=== PATIENT | female | born 1970 | race Caucasian/White ===

== ENCOUNTER 2022-04-11 15:52 | Emergency (ER) | payer BC, SELFPAY ==
--- NOTE | ~2022-04-11 | XR_ITS ---
EXAMINATION: XR ankle LT min 3V DATE: 04/11/2022 16:27 INDICATION: Left foot and ankle pain TECHNIQUE: Anteroposterior, lateral, mortise, and additional oblique view of the ankle were obtained. COMPARISON: None. FINDINGS: There is mild cortical irregularity at the lateral aspect of the calcaneus. Bone alignment is normal. There is soft tissue swelling of the medial foot. IMPRESSION: 1. Possible nondisplaced fracture of the lateral calcaneus. Reviewed, dictated and finalized at location L. ING MACHINE SETTER
--- NOTE | ~2022-04-11 | XR_ITS ---
EXAMINATION: XR foot LT min 3V DATE: 04/11/2022 16:27 INDICATION: Left foot pain, initial encounter TECHNIQUE: Dorsoplantar, lateral, and 2 oblique views of the left foot were obtained. COMPARISON: None. FINDINGS: There is subtle cortical irregularity at the distal/lateral calcaneus. There is lateral sof t tissue swelling of the foot. Bone alignment is normal. No additional suspected fracture is identifi ed. IMPRESSION: 1. Possible fracture of the distal/lateral calcaneus. Reviewed, dictated and finalized at location L. INUM CAN COLLECTOR
[2022-04-11 16:05] VITALS: BP 133/88; PULSE 80; RESP 16; TEMP 36.4; O2SAT 100
--- NOTE | 2022-04-11 16:33 | ED.LOWEXIN ---
HPI - Extremity Injury (Lower) General Chief Complaint: Extremity Injury, Lower Stated Complaint: Lt Ankle Pain Due to Fall Time Seen by Provider: 04/11/22 16:33 Source: patient, RN notes reviewed and old records reviewed Mode of arrival: ambulatory Limitations: no limitations History of Present Illness HPI Narrative: 52-year-old female presents to the [facility] with complaints of left ankle pain, swelling, bruising since yesterday. States she was walking down stairs and not sure the mechanism of injury but by the time she got down to the bottom of the stairs ankle head pain. Denies hitting head. No loss of consciousness. No back pain, no pain in the hips, knee. has her own crutches Related Data Home Medications Medication Instructions Recorded Confirmed anastrozole 1 mg tablet 1 mg PO DAILY 04/11/22 04/11/22 atorvastatin 20 mg tablet 20 mg PO DAILY 04/11/22 04/11/22 sertraline 25 mg tablet 25 mg PO DAILY 04/11/22 04/11/22 Allergies Allergy/AdvReac Type Severity Reaction Status Date / Time citalopram Allergy Mild rash Unverified 04/11/22 17:06 Review of Systems Review of Systems: All systems reviewed & are unremarkable except as noted in HPI and below Constitutional: Constitutional: Reports no additional constitutional complaints Eyes: Eyes: Reports no additional eye complaints ENT: Reports system reviewed and no additional complaints, except as documented Cardiovascular: Cardiovascular: Reports no additional cardiovascular complaints, Denies chest pain and Denies dyspnea Respiratory: Respiratory: Reports no additional respiratory complaints, Denies chest congestion, Denies cough and Denies dyspnea Gastrointestinal: Gastrointestinal: Reports no additional gastrointestinal complaints, Denies abdominal pain, Denies nausea and Denies vomiting Musculoskeletal: Musculoskeletal: Reports as per HPI, Reports arthralgias and Reports joint swelling Integumentary/Breasts: Skin/Breast: Reports system reviewed and no additional complaints, except as docu Neurologic: Reports system reviewed and no additional complaints, except as documented Psychiatric: Psychiatric: Reports no additional psychiatric complaints Allergic/Immunologic: Allergic/Immunologic: Reports no additional allergic/immunologic complaints PMFSH Comments At the time of my signature, I reviewed and agree with the nursing past medical, surgical, social, and family history. There is no relevant family history pertinent to the patient complaint. Exam Const: General: cooperative, healthy appearing, comfortable, no acute distress, well developed, alert and well nourished Nutritional Appearance: well nourished Orientation/consciousness: patient oriented x3 Limitations: no limitations HENMT: Head: normal to inspection Ears: hearing grossly normal bilaterally and external ears normal Face/Nose/Sinus: Normal external nose present, Normal nares present, Normal nasal mucous membranes and turbinates present and normal facial exam Face and sinus: normal facial exam Mouth: Yes Normal oral and palatal mucosa present, Yes lip normal and Yes moist mucous membranes Eyes: General: appearance normal, both eyes and all related structures Alignment and Position: alignment normal Periorbital: periorbital findings normal Conjunctivae: conjunctivae normal Pupils: Equal, round and reactive pupils present EOM: EOMs intact bilaterally Neck: Neck: normal visual inspection, full ROM, no lymphadenopathy and no meningeal signs Chest: Chest palpation & inspection: normal inspection of the chest Resp: Effort & Inspection: normal respiratory effort and able to speak in complete sentences Auscultation: clear to auscultation bilaterally, no crackles, no rales, no rhonchi and no wheezes Cardio: Rate: regular rate Rhythm: regular rhythm Back/Spine/Pelvis: Cervical Spine: cervical ROM normal Thoracic/Lumbar Spine: No thoracic spinal tenderness Skin: General skin exam: norm
== END 2022-04-11 17:33 | disposition home or self-care (01) ==
PROVIDERS: Emergency Provider Nurse Practitioner; PCP Internal Medicine
DX: S92.002A Unspecified fracture of left calcaneus, initial encounter for closed fracture (principal); W10.9XXA Fall (on) (from) unspecified stairs and steps, initial encounter; Z85.3 Personal history of malignant neoplasm of breast
CPT/HCPCS: 29515; 73610; 73630; 99214; G0463

== ENCOUNTER 2022-05-12 00:15 | Day surgery (SDC) | payer BC, SELFPAY ==
[2022-04-20 14:40] VITALS: BMI 23.4
--- NOTE | 2022-05-12 10:06 | P.PNAN_ITS ---
Anes - Initial Pre Proc Eval Procedure: Operation Date: 05/12/22 12:30 Proposed Procedures p Screening Colonoscopy - Dante Herndon MD Date/Time: 05/12/22 10:06 Surgeon: Dante Herndon MD Pre Op Diagnosis: neoplasm screening Patient Data Age: 52 Gender: F Height: 1.73 m Weight: 70 kg Allergies Allergy/AdvReac Type Severity Reaction Status Date / Time citalopram Allergy Mild rash Verified 05/01/22 08:24 Home Medications Medication Instructions Recorded Confirmed Type anastrozole 1 mg tablet 1 mg PO DAILY 04/11/22 05/01/22 History atorvastatin 20 mg tablet 20 mg PO DAILY 04/11/22 05/01/22 History sertraline 25 mg tablet 25 mg PO DAILY 04/11/22 05/01/22 History Patient hx anesthesia problems: none Family hx anesthesia problems: none Results Review: All pre-operative results and documents have been reviewed as part of the pre- operative evaluation. [facility] Past Medical History Medical History (Updated 05/12/22 @ 10:54 by Dante Herndon MD) Anxiety Avulsion fracture of left calcaneus Breast cancer Depression Hypercholesterolemia Left ankle pain Social History Social History Smoking status: Never smoker Alcohol intake: current Drinks per week: 1 Substance use: never Substance use type: does not use Living arrangements: with family Spiritual care concerns: No Anes - Eval Final PreProcedure Day of Procedure 05/12/22 10:06 Patient weight: normal Heart: regular rate and rhythm Lungs: clear to auscultation and normal air movement Airway: Mallampati scale class II Neurological: alert and oriented Last oral intake: >/= 8 hours ASA classification: III Emergent: no Anesthetic plan: proceed Anesthesia type and monitoring: general GIVS Results Review: All pre-operative results and documents have been reviewed as part of the pre-op erative evaluation. Informed Consent: The patient's anesthetic plan and its attendant risks and benefits were discussed with the patient/family/POA. Questions were solicited and answers provided to the satisfaction of the patient/family/POA.
--- NOTE | 2022-05-12 10:53 | PM.HPGS ---
History of Present Illness History of Present Illness Consent: Risks, benefits, and alternatives have been discussed and questions answered. Patient agrees to proceed with procedure. Chief complaint: neoplasm screening Narrative: Sirena Jewell is a 52 year old female referred for colon cancer screening Review of Systems Review of Systems: All systems reviewed & are unremarkable except as noted in HPI and below PMFSH Past Medical History Medical History Anxiety Avulsion fracture of left calcaneus Breast cancer Depression Hypercholesterolemia Left ankle pain Social History Social History Smoking status: Never smoker Alcohol intake: current Drinks per week: 1 Substance use: never Substance use type: does not use Living arrangements: with family Spiritual care concerns: No Meds Home Medications and Allergies Home Medications Medication Instructions Recorded Confirmed Type anastrozole 1 mg tablet 1 mg PO DAILY 04/11/22 05/01/22 History atorvastatin 20 mg tablet 20 mg PO DAILY 04/11/22 05/01/22 History sertraline 25 mg tablet 25 mg PO DAILY 04/11/22 05/01/22 History Allergies Allergy/AdvReac Type Severity Reaction Status Date / Time citalopram Allergy Mild rash Verified 05/01/22 08:24 Exam Resp: Auscultation: clear to auscultation bilaterally Cardio: Rate: regular rate Rhythm: regular rhythm GI: GI Palp: Yes Soft to palpation and No Tenderness to palpation present (GI) Assessment and Plan Assessment and plan (1) Colon cancer screening: Code(s): Z12.11 - Encounter for screening for malignant neoplasm of colon Status: Acute Assessment and Plan: Colonoscopy with possible biopsy or polypectomy or cautery or injection of substances.
[2022-05-12 11:13] VITALS: BP 129/67; PULSE 89; RESP 20; TEMP 36.8; O2SAT 98
[2022-05-12] MEDS: LACTATED RINGERS 1,000 ML 150 ML IV CONT (11:35)
[2022-05-12 12:35] VITALS: BP 93/60; PULSE 88; RESP 19; O2SAT 98
[2022-05-12 12:45] VITALS: BP 119/74; PULSE 87; RESP 16; O2SAT 100
[2022-05-12 12:55] VITALS: BP 132/86; PULSE 76; RESP 15; O2SAT 100
== END 2022-05-12 13:13 | disposition home or self-care (01) ==
PROVIDERS: PCP Internal Medicine; Visit Provider Internal Medicine Gastroenterology
PROC: 0DJD8ZZ Inspection of Lower Intestinal Tract, Via Natural or Artificial Opening Endoscopic (ICD-10-PCS; CPT 45378; principal; 2022-05-12 12:30)
DX: Z12.11 Encounter for screening for malignant neoplasm of colon (principal); K57.30 Diverticulosis of large intestine without perforation or abscess without bleeding; Z80.0 Family history of malignant neoplasm of digestive organs; E78.00 Pure hypercholesterolemia, unspecified; F41.9 Anxiety disorder, unspecified; F32.A Depression, unspecified; Z79.811 Long term (current) use of aromatase inhibitors; Z85.3 Personal history of malignant neoplasm of breast
CPT/HCPCS: 45378; J2704; J7120

== ENCOUNTER 2022-11-04 08:02 | Emergency (ER) | payer BC, SELFPAY ==
--- NOTE | 2022-11-04 08:17 | ED.GENADULT ---
HPI - General Adult General Chief complaint: Skin/Abscess/Foreign Body Stated complaint: sore on lower lip Time Seen by Provider: 11/04/22 08:23 Source: patient, RN notes reviewed and old records reviewed Mode of arrival: ambulatory Limitations: no limitations History of Present Illness HPI narrative: 52-year-old female presents to the [facility] with complaints of a sore to the lower lip that started Sunday. Has a history of cold sores. Was unable to find her normal treatment and has tried [id number], a regular no oil and other treatments she found online. Now area is dried. Not swollen. No increased warmth. Not abscessed. No fluctuant area Onset (ago): day(s) (5) Location: mouth (Center lower lip) Related Data Home Medications Medication Instructions Recorded Confirmed anastrozole 1 mg tablet 1 mg PO DAILY 04/11/22 11/04/22 atorvastatin 20 mg tablet 20 mg PO DAILY 04/11/22 11/04/22 sertraline 25 mg tablet 25 mg PO DAILY 04/11/22 11/04/22 Allergies Allergy/AdvReac Type Severity Reaction Status Date / Time citalopram Allergy Mild rash Verified 11/04/22 08:29 Review of Systems Review of Systems: All systems reviewed & are unremarkable except as noted in HPI and below Constitutional: Constitutional: Reports no additional constitutional complaints Eyes: Eyes: Reports no additional eye complaints ENT: Reports as per HPI and Reports other (Sore lip) Cardiovascular: Cardiovascular: Reports no additional cardiovascular complaints, Denies chest pain and Denies dyspnea Respiratory: Respiratory: Reports no additional respiratory complaints, Denies chest congestion, Denies cough and Denies dyspnea Gastrointestinal: Gastrointestinal: Reports no additional gastrointestinal complaints, Denies abdominal pain, Denies nausea and Denies vomiting Musculoskeletal: Musculoskeletal: Reports no additional musculoskeletal complaints Integumentary/Breasts: Skin/Breast: Reports system reviewed and no additional complaints, except as docu Neurologic: Reports system reviewed and no additional complaints, except as documented Psychiatric: Psychiatric: Reports no additional psychiatric complaints Allergic/Immunologic: Allergic/Immunologic: Reports no additional allergic/immunologic complaints PMFSH Past Medical History Medical History Anxiety Avulsion fracture of left calcaneus Breast cancer Depression Hypercholesterolemia Left ankle pain Social History Social History (Reviewed 07/22/23 @ 08:19 by LOPEZ Mccartney Smoking status: Never smoker Alcohol intake: current Drinks per week: 1 Substance use: never Substance use type: does not use Living arrangements: with family Spiritual care concerns: No Comments At the time of my signature, I reviewed and agree with the nursing past medical, surgical, social, and family history. There is no relevant family history pertinent to the patient complaint. Exam Const: General: cooperative, healthy appearing, comfortable, no acute distress, well developed, alert and well nourished Nutritional Appearance: well nourished Orientation/consciousness: patient oriented x3 Limitations: no limitations HENMT: Head: normal to inspection Head images: 1. 1 x 1 cm dry area. No redness, NO swelling, no fluctuance, no increased warmth. Minor discoloration, brown in color Ears: hearing grossly normal bilaterally and external ears normal Face/Nose/Sinus: Normal external nose present, Normal nares present, Normal nasal mucous membranes and turbinates present and normal facial exam Face and sinus: normal facial exam Mouth: Yes Normal oral and palatal mucosa present, Yes lip normal and Yes moist mucous membranes Throat: posterior oropharynx normal and uvula midline Eyes: General: appearance normal, both eyes and all related structures Alignment and Position: alignment normal Periorbital: periorbital findings n
[2022-11-04 08:20] VITALS: BP 151/88; PULSE 78; RESP 18; TEMP 37.3; O2SAT 99
== END 2022-11-04 08:39 | disposition home or self-care (01) ==
PROVIDERS: Emergency Provider Nurse Practitioner; PCP Internal Medicine
DX: B00.1 Herpesviral vesicular dermatitis (principal); E78.00 Pure hypercholesterolemia, unspecified; F41.9 Anxiety disorder, unspecified; F32.A Depression, unspecified; Z85.3 Personal history of malignant neoplasm of breast
CPT/HCPCS: 99213; G0463

== ENCOUNTER 2023-02-10 11:51 | Emergency (ER) | payer BC, SELFPAY ==
--- NOTE | 2023-02-10 11:55 | ED.EYEPROB ---
HPI - Eye Problem General Chief complaint: Eye Problems Stated complaint: bilateral eye irritation Time Seen by Provider: 02/10/23 11:56 Source: patient Mode of arrival: ambulatory Limitations: no limitations History of Present Illness HPI Narrative: Sirena is a 53-year-old female patient presenting to the clinic today with complaints of bilateral eye irritation x2 days. She reports that she has had some yellow drainage coming from the eyes with a little bit of irritation. Denies any visual changes or photosensitivity. No fever or chills. Has had runny nose since November. Related Data Home Medications Medication Instructions Recorded Confirmed anastrozole 1 mg tablet 1 mg PO DAILY 04/11/22 02/10/23 atorvastatin 20 mg tablet 20 mg PO DAILY 04/11/22 02/10/23 sertraline 25 mg tablet 25 mg PO DAILY 04/11/22 02/10/23 Allergies Allergy/AdvReac Type Severity Reaction Status Date / Time citalopram Allergy Mild rash Verified 02/10/23 11:57 Review of Systems Review of Systems: Pertinent positives per HPI. Patient denies any fever, chills, rash, headache, visual changes, dizziness, cough, sore throat, shortness of breath, chest pain, palpitations, nausea, vomiting, diarrhea, constipation, abdominal pain, or any urinary issues. [facility] Past Medical History Medical History Anxiety Avulsion fracture of left calcaneus Breast cancer Depression Hypercholesterolemia Left ankle pain Social History Social History Smoking status: Never smoker Alcohol intake: current Drinks per week: 1 Substance use: never Substance use type: does not use Living arrangements: with family Spiritual care concerns: No Comments At the time of my signature, I reviewed and agree with the nursing past medical, surgical, social, and family history. There is no relevant family history pertinent to the patient complaint. Exam Narrative: General: Well-developed, well nourished, in no apparent distress Head: Normocephalic, atraumatic Eyes: Pupils equally round and reactive to light bilaterally, EOM intact, sclera and conjunctive injected with yellow mucopurulent discharge coming from bilateral eyes, lower eyelid swelling noted bilaterally.l Ears: TMs intact and clear, ear canals clear, no drainage, grossly hearing normal. Nose: Nares patent, clear discharge, no inflammation, no sinus tenderness. Mouth: Oropharynx without lesions or masses, good dentition, MMM. Neck: Supple, trachea midline, no enlargement of anterior or posterior cervical nodes, no thyroid masses or goiter palpable. Cardio: Regular rate and rhythm, s1 and s2 normal, no murmur appreciated. Resp: Clear to auscultation bilaterally anteriorly and posteriorly, no rhonchi, rales, wheezing or rubs Course Course Emergency Course: Portions of this record may have been created with voice recognition software. Level of Care: Express Care Visit Vital Signs Vital signs: Vital signs reviewed MDM - Eye Problem MDM Narrative Medical decision making narrative: At the time of visit patient is resting comfortably on the exam table. I suspect patient has bilateral conjunctivitis. Prescription for tobramycin was sent to the pharmacy and supportive measures were discussed with the patient she voiced understanding discharge instructions agrees to treatment plan. Differential Diagnosis Differential diagnosis: Likely corneal abrasion, conjunctivitis, acute iritis, periorbital cellulitis and other (Keratitis) Discharge Plan Discharge Clinical Impression: Conjunctivitis Qualifiers: Conjunctivitis type: acute Acute conjunctivitis type: bacterial Laterality: bilateral Qualified Code(s): H10.33 - Unspecified acute conjunctivitis, bilateral Patient Disposition: Home, Self-Care Condition: Stable Instructions: Antibiotic Form, Conjunctivitis (ED) Add
[2023-02-10 12:01] VITALS: BP 133/88; PULSE 82; RESP 18; TEMP 37.1; O2SAT 99
== END 2023-02-10 12:10 | disposition home or self-care (01) ==
PROVIDERS: Emergency Provider Nurse Practitioner Family; PCP Internal Medicine
DX: H10.33 Unspecified acute conjunctivitis, bilateral (principal); F41.9 Anxiety disorder, unspecified; F32.A Depression, unspecified; E78.00 Pure hypercholesterolemia, unspecified; Z85.3 Personal history of malignant neoplasm of breast
CPT/HCPCS: 99213; G0463

== ENCOUNTER 2025-04-12 12:04 | Emergency (ER) | payer BC, SELFPAY ==
[2025-04-12] VITALS (22 sets, daily range): BP systolic 146–167; BP diastolic 67–89; PULSE 93–127; RESP 10–20; TEMP 36.2; O2SAT 96–100
--- NOTE | ~2025-04-12 | XR_ITS ---
EXAMINATION: XR chest 2V DATE: 04/12/2025 14:09 INDICATION: Palpitation. TECHNIQUE: Frontal and lateral views of the chest were obtained. COMPARISON: None. FINDINGS: Heart size is normal. Mild atherosclerotic aorta. Lungs are free of acute process. IMPRESSION: 1. No acute findings of the lungs. Reviewed, dictated and finalized at location T. S MECHANIC
--- NOTE | ~2025-04-12 | CT_ITS ---
EXAMINATION: CTA chest PE protocol DATE: 04/12/2025 15:01 INDICATION: Palpitation, elevated d-dimer. TECHNIQUE: Computed tomography angiography (CTA) of the chest was performed with 100 mL Omnipaque-350 intravenous contrast timed to evaluate the pulmonary arteries. Coronal maximum intensity projection 3D-reconstructions were created by the technologist. Automated exposure control and iterative reconstruction technique were employed. The dose-length product was 186.18 mGy-cm. COMPARISON: Chest x-ray dated 04/04/2025. FINDINGS: No acute findings of focal nature within the lungs. No filling defects within the pulmonary arteries to suggest emboli. Thoracic aorta shows no acute findings. No chest wall mass. No axillary adenopathy. Postoperative changes of left mastectomy. IMPRESSION: 1. No evidence of pulmonary emboli. Thoracic aorta shows no acute findings. 2. No focal pulmonary changes of acute nature. 3. Postoperative changes of left mastectomy. Reviewed, dictated and finalized at location T. DIEM PHYSICAL THERAPIST
--- OUTSIDE RECORDS SUMMARY | 2025-04-12 12:06 | XMS_ITS | Encounter Summary ---
Author Organization [facility] Address [address] [place] [address] Phone Care Team Providers Care Assistant Store Manager Trainee Name Role Phone Salvatore Mooney MD Primary Care Provider [phone] Kayleigh Valderrama MD Unavailable Pattie Alvarez MD Unavailable [phone] Louann Bolden MD Unavailable [phone] Nargis Wilson PhD Unavailable [phone] Henry Carr MD Unavailable [phone] Encounter Details Date Type Department Care Team (Latest Contact Info) Description 2024 Orders Only [facility] Scanning, Provider Social History Tobacco Use Types Packs/Day Years Used Date Smoking Tobacco: Never Smokeless Tobacco: Never Alcohol Use Standard Drinks/Week Comments Yes 0 (1 standard drink = 0.6 oz pur e alcohol) rare AUDIT-C Answer Date Recorded Q1: How often do you have a drink containing alc ohol? 2-4 times a month 04/26/2022 Q2: How many drinks containi ng alcohol do you have on a typical day when you are drinking? 1 or 2 04/26/2022 Q3: How often do you have si x or more drinks on one occasion? 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 Gender Identity Female 04/29/2020 6:50 PM DX BOARD OPERATOR Sexual Orientation Straight 04/29/2020 6: 50 PM DX BOARD OPERATOR documented as of this encounter Plan of Treatment Not on file documented as of this encounter Procedures Procedure Name Priority Date/Time Associated Diagnosis Comments SCAN - PATHOLOGY 2024 documented in this encounter Results * SCAN - PATHOLOGY (2024) Provider Scanning Final Result documented in this encounter Visit Diagnoses Not on filedocumented in this encounter Care Teams Assistant Store Manager Trainee Relationship Specialty Start Date End Date Salvatore Mooney MD PCP - General 06/12/16 Kayleigh Valderrama MD [address] [place] [address] Radiation Oncologist Radiation Oncology 10/23/17 Pattie Alvarez MD [address] [place] [address] Surgeon Surgical Oncology 10/23/17 Louann Bolden MD [address] [place] [address] Surgeon Plastic Surgery 10/23/17 Nargis Wilson, PhD [address] [place] [address] Nurse Practitioner Radiation Oncology 10/23/17 Henry Carr MD [address] [place] [address] Medical Oncologist/Dumpster Operator Medical Oncology 10/21/18 documented as of this encounter
--- OUTSIDE RECORDS SUMMARY | 2025-04-12 12:06 | XMS_ITS | Clinical Summary ---
Author Organization [facility] Address [address] [address] Care Team Providers Care Cytology Technologist Name Role Phone Salvatore Mooney MD Primary Care Provider [phone] Kayleigh Valderrama MD Unavailable Pattie Alvarez MD Unavailable [phone] Louann Bolden MD Unavailable Nargis Wilson PhD Unavailable [phone] Henry Carr MD Unavailable [phone] Allergies Active Allergy Reactions Criticality Noted Date Comments Cephalexin Blisters,Itching,Rash High 11/20/2024 Citalopram Hives Medium Medications cholecalciferol (VITAMIN D-3) 2,000 unit tabletIndicatio ns:Vitamin D Deficiency Take 1 tablet (2,000 Units total) by mouth nightly Active calcium carbonate-vitam in D3 1,500 mg (600mg elemental) -800 unit per tabletIndicatio ns:Hypocalcemia Prevention,Karishma min D Deficiency Take 1 tablet by mouth nightly Active prasterone, dhea, 6.5 mg insert Insert 6.5 mg into the vagina daily Take 2 times per week 34 each 3 3 Active magnesium oxide 400 mg magnesium capsule Take 400 mg by mouth daily Active docosanoL (Abreva) 10 % cream Apply topically 5 (five) times a day 2 g 1 4 Active anastrozole (ARIMIDEX) 1 mg tablet TAKE 1 TABLET DAILY 90 tablet 3 5 Active atorvastatin (LIPITOR) 20 mg tablet Take 1 tablet (20 mg total) by mouth nightly 90 tablet 3 5 Active valACYclovir (VALTREX) 1 gram tablet Take 2 tabs (2000 mg) 2 times a days for 1 day. May repeat 3 x monthly 12 tablet 1 5 Active sertraline (ZOLOFT) 25 mg tablet Take 1 tablet (25 mg total) by mouth daily 90 tablet 3 5 Active Active Problems Problem Noted Date Diagnosed Date Near syncope 04/23/2023 Assessment & Plan (04/23/2023 2:36 PM AIR ANALYST): Exam is benign If reoccurs to contact us and will obtain ECHO Hyperlipidemia 06/22/2022 Assessment & Plan (06/22/2022 9:31 AM AIR ANALYST): Lipids at goal Continue atorvastatin 20mg Goal of 150 min/weekly of moderate intensity activity Labs today Exposed breast implant 04/26/2022 Overview (04/26/2022): Added automatically from request for surgery [id number] Encounter for monitoring aromatase inhibitor the rapy 12/01/2020 Osteoporosis 08/30/2020 Anxiety 04/30/2020 Assessment & Plan (06/22/2022 9:29 AM AIR ANALYST): Doing on sertraline 25mg 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, estrogen receptor positive 10/23/2017 Cancer Staging:Clinical: Unsigned Pathologic:Stage IB(pT1c, pN1a(sn), cM0, G3, ER: Positive, [place]: Positive, HER2: Negative) - Unsigned Encounter for follow-up surveillance of breast c ancer 10/23/2017 Resolved Problems Problem Noted Date Diagnosed Date Resolved Date Osteopenia of multiple sites 08/30/2020 04/23/2023 Immunizations Immunization Administration Dates Next Due Flucelvax Influenza Quad 03/17/2017 Influenza, Quadrivalent, Rec ombinant, Egg Free, Preservative Free, Intramuscular 02/01/2018 Influenza, Quadrivalent, Spl it, Preservative Free, Intramuscular 01/31/2020,02/14/2019,03/05/2015 Influenza, Trivalent, High D ose, Split, Preservative Free, Intramuscular 02/03/2014 Influenza, Trivalent, Preser vative Free, Intramuscular 03/02/2016 Influenza, Unspecified 01/22/2024 Tdap 11/26/2024 Surgical History Surgery Date Site/Laterality Comments BREAST LUMPECTOMY 04/16/2015 - 04/15/2016 MASTECTOMY 04/16/2015 - 04/15/2016 BACK SURGERY 04/16/2014 - 04/15/2015 BREAST SURGERY 04/16/2016 - 04/15/2017 expanders removed, implants placed Medical History Medical History Date Comments Hyperlipidemia Depression Cancer (HCC) Family History Medical History Relation Name Comments Alcohol abuse Father Family history of alcohol abuse - (Added by TW Conv) Cancer Father Family history of malignant neoplasm - (Added by TW Conv) Lymphoma Father Family history of lymphoma - (Added by TW Conv) Stroke Father Family history of cerebrovascular accident (CVA) - (Added by TW Conv) Arthritis Mother Family history of arthritis - (Added by TW Conv) Osteoporosis Mother Anesthesia problems Neg Hx Broken bones Neg Hx Hip fracture Neg Hx Kyphosis Neg Hx Scoliosis Neg Hx Relation Name Status Comments Father Mother Social History Tobacco Use Types Packs/Day Years Used Date Smoking Tobacco: Never Smokeless Tobacco: Never Tobacco Cessation:Counseling Given: Not Answered Alcohol Use Standard Drinks/Week Comments Yes 0 [...] on file Legal Sex Female 2:44 PM AIR ANALYST Gender Identity Female 04/29/2020 6:50 PM AIR ANALYST Sexual Orientation Straight 04/29/2020 6: 50 PM AIR ANALYST Last Filed Vital Signs Vital Sign Reading Time Taken Comments Blood Pressure 155/97 11/26/2024 1:54 PM CDT Pulse 91 11/26/2024 1:54 PM CDT Temperature 36.9 C (98.4 F) 07/17/2024 12:53 PM CDT Respiratory Rate 16 07/17/2024 12:53 PM CDT Oxygen Saturation 100% 07/17/2024 12:53 PM CDT Inhaled Oxygen Concentration - - Weight 68.9 kg (152 lb) 11/26/2024 1:54 PM CDT Height 170.2 cm (5' 7) 11/26/2024 1:54 PM CDT Body Mass Index 23.81 11/26/2024 1:54 PM CDT Plan of Treatment Health Maintenance Due Date Last Done Comments Cervical Cancer Screening 1968 Depression Screening 1968 Hepatitis C Screening 1968 Hepatitis B Screening 01/23/1986 Pneumococcal vaccine <65 (1 of 2 - PCV) 01/23/1987 Zoster Vaccine (1 of 2) 01/23/1987 Covid-19 Vaccine (4 - 2024-2 6 season) 2024 02/01/2022, 07/09/2020, 06/11/2020 Influenza Vaccine (#1) 2024 , 02/01/2022, 02/08/2021, Additional history exists Breast Cancer Screening-Mammogram 09/04/2025 09/04/2024, 09/04/2023, 10/25/2022, Additional history exists Regular Well Visit/Exam 18-64 11/26/2025, 05/12/2021, 04/30/2020 Colon Cancer Screening-Colonoscopy 05/10/2027 DTaP/Tdap/Td Vaccine (2 - Td or Tdap) 11/26/2034 11/26/2024 Medical Devices Explanted Type [employer] Teacher Device Identifier Shelf Expiration Date Model / Serial / Lot Allergan Breast Implant Style Srx Explanted:Qty: 1 on 04/28/2022 by Louann Bolden MD at [facility] Breast Left: Breast [employer] / / [id number] Procedures Procedure Name Priority Date/Time Associated Diagnosis Comments SCREENING MAMMOGRAM RIGHT W BUD UNILATERAL ONLY Schedule Routine, Read Routine (OP Routine) 09/04/2024 1:44 PM CDT Carcinoma of lower-outer quadrant of left breast in female, estrogen receptor positive (HCC) Encounter for screening mammogram for malignant neoplasm of breast from Last 3 Months or Most Recently Relevant to Health Maintenance Results * Screening Mammogram Right W Bud (09/04/2024 1:44 PM CDT) Anatomical Region Laterality Modality Breast Right Mammography Narrative 09/05/2024 3:51 PM CDT Mammogram Technique: Right Breast Digital Breast Tomosynthesis, Unilateral C-view 2D Screening mammogram. Views obtained: right craniocaudal and right mediolateral oblique. Computer Aided Detection was performed. Mammogram Findings: The present examination has been compared to prior imaging studies performed at [facility] on 10/20/2021, 10/25/2022 and 09/04/2023. There are scattered areas of fibroglandular density. There is no suspicious abnormality in the right breast. Patient status post contralateral mastectomy for personal history of breast cancer. Impression: There is no mammographic evidence of malignancy. Annual screening mammography is recommended. OVERALL FINAL ASSESSMENT: BI-RADS CATEGORY 1: Negative. Procedure Note Erika Choi MD - 09/05/2024 Mammogram Technique: Right Breast Digital Breast Tomosynthesis, Unilateral C-view 2DScreening mammogram. Views obtained: right craniocaudal and right mediolateral oblique. Computer Aided Detection was performed. Mammogram Findings: The present examination has been compared to prior imaging studies performed at [facility] on 10/20/2021, 10/25/2022 and 09/04/2023. There are scattered areas of fibroglandular density. There is no suspicious abnormality in the right breast. Patient status post contralateral mastectomy for personal history ofbreast cancer. Impression: There is no mammographic evidence of malignancy. Annual screening mammography is recommended. OVERALL FINAL ASSESSMENT: BI-RADS CATEGORY 1: Negative. Henry Carr MD IMG MAMMO PROCEDURES Final Result from Last 3 Months or Most Recently Relevant to Health Maintenance Insurance [facility] CHOICE OOS [facility] CHOICE PLUS [place] BLUE ACC CHOICE OOS Care Teams Cytology Technologist Relationship Specialty Start Date End Date Salvatore Mooney MD PCP - General 06/12/16 Kayleigh Valderrama MD [address] [place] [address] Radiation Oncologist Radiation Oncology 10/23/17 Pattie Alvarez MD [address] [place] [address] Surgeon Surgical Oncology 10/23/17 Louann Bolden MD [address] [place], [place] [id number] Surgeon Plastic Surgery 10/23/17 Nargis Wilson, PhD [address] [place] [address] Nurse Practitioner Radiation Oncology 10/23/17 Henry Carr MD [address] [place], [place] [id number] Medical Oncologist/After School Counselor Medical Oncology 10/21/18
--- OUTSIDE RECORDS SUMMARY | 2025-04-12 12:06 | XMS_ITS | Encounter Summary ---
Author Organization [facility] Address [address] [place] [address] Phone Care Team Providers Care Scanning Supervisor Name Role Phone Salvatore Mooney MD Primary Care Provider [phone] Kayleigh Valderrama MD Unavailable Pattie Alvarez MD Unavailable Louann Bolden MD Unavailable Nargis Wilson PhD Unavailable Henry Carr MD Unavailable [phone] Encounter Details Date Type Department Care Team (Late st Contact Info) Description 09/19/2023 Treatment [facility] [address] [place] [address] Arthur Beckman MD Critical access hospital[address] [address] Social History Tobacco Use Types Packs/Day Years [...] on file Legal Sex Female 2:44 PM METAL MINER BLASTING Gender Identity Female 04/29/2020 6:50 PM METAL MINER BLASTING Sexual Orientation Straight 04/29/2020 6: 50 PM METAL MINER BLASTING documented as of this encounter Plan of Treatment Not on file documented as of this encounter Visit Diagnoses Not on filedocumented in this encounter Care Teams Scanning Supervisor Relationship Specialty Start Date End Date Salvatore Mooney MD PCP - General 06/12/16 Kayleigh Valderrama MD [address] [place] [address] Radiation Oncologist Radiation Oncology 10/23/17 Pattie Alvarez MD [address] [place] [address] Surgeon Surgical Oncology 10/23/17 Louann Bolden MD [address] [place], [place] [address] Surgeon Plastic Surgery 10/23/17 Nargis Wilson, PhD [address] [place] [address] Nurse Practitioner Radiation Oncology 10/23/17 Henry Carr MD [address] [place] [address] Medical Oncologist/Supervisor Whipped Topping Medical Oncology 10/21/18 documented as of this encounter
--- OUTSIDE RECORDS SUMMARY | 2025-04-12 12:06 | XMS_ITS | Encounter Summary ---
Author Organization [facility] Address [address] [place] [address] Phone Care Team Providers Care Religious Education Director Name Role Phone Salvatore Mooney MD Primary Care Provider [phone] Kayleigh Valderrama MD Unavailable Pattie Alvarez MD Unavailable [phone] Gregory Quinteros MD Unavailable [phone] Louann Bolden MD Unavailable [phone] Nargis Wilson PhD Unavailable [phone] Henry Carr MD Unavailable [phone] Encounter Details Date Type Department Care Team (Latest Contact Info) Description 07/26/2018 Orders Only [facility] Scanning, Provider Social History Tobacco Use Types Packs/Day Years Used Date Smoking Tobacco: Never Smokeless Tobacco: Never Alcohol Use Standard Drinks/Week Comments Yes 0 (1 standard drink = 0.6 oz pur e alcohol) rare Comments No Sex and Gender Information Value Date Recorded Sex Assigned at Not on file Legal Sex Female 2:44 PM WASH AND GREASER Gender Identity Female 04/29/2020 6:50 PM WASH AND GREASER Sexual Orientation Straight 04/29/2020 6: 50 PM WASH AND GREASER documented as of this encounter Plan of Treatment Not on file documented as of this encounter Procedures Procedure Name Priority Date/Time Associated Diagnosis Comments SCAN - LABS 07/26/2018 documented in this encounter Results * SCAN - LABS (07/26/2018) us Provider Scanning Final Result documented in this encounter Visit Diagnoses Not on filedocumented in this encounter Care Teams Religious Education Director Relationship Specialty Start Date End Date Salvatore Mooney MD PCP - General 06/12/16 Kayleigh Valderrama MD [address] [place] [address] Radiation Oncologist Radiation Oncology 10/23/17 Pattie Alvarez MD [address] [place] [address] Surgeon Surgical Oncology 10/23/17 Gregory Quinteros MD [address] [place] [address] Referring Physician Medical Oncology 10/23/17 10/20/19 Louann Bolden MD [address] [facility] [address] [place] [address] Surgeon Plastic Surgery 10/23/17 Nargis Wilson, PhD [address] [place] [address] [place] [address] Nurse Practitioner Radiation Oncology 10/23/17 Henry Carr MD [address] [address] Medical Oncologist/Child Welfare Assistant Medical Oncology 10/21/18 documented as of this encounter
--- OUTSIDE RECORDS SUMMARY | 2025-04-12 12:06 | XMS_ITS | Encounter Summary ---
Author Organization [facility] Address [address] [place] [address] Phone Care Team Providers Care Clinical Dermatologist Name Role Phone Salvatore Mooney MD Primary Care Provider [phone] Kayleigh Valderrama MD Unavailable Pattie Alvarez MD Unavailable [phone] Gregory Quinteros MD Unavailable [phone] Louann Bolden MD Unavailable [phone] Nargis Wilson PhD Unavailable [phone] Henry Carr MD Unavailable [phone] Encounter Details Date Type Department Care Team (Latest Contact Info) Description 07/26/2018 Orders Only [facility] Scanning, Provider Social History Tobacco Use Types Packs/Day Years Used Date Smoking Tobacco: Never Smokeless Tobacco: Never Alcohol Use Standard Drinks/Week Comments Yes 0 (1 standard drink = 0.6 oz pur e alcohol) rare Comments No Sex and Gender Information Value Date Recorded Sex Assigned at Not on file Legal Sex Female 2:44 PM GOVERNMENT PROFESSOR Gender Identity Female 04/29/2020 6:50 PM GOVERNMENT PROFESSOR Sexual Orientation Straight 04/29/2020 6: 50 PM GOVERNMENT PROFESSOR documented as of this encounter Plan of Treatment Not on file documented as of this encounter Procedures Procedure Name Priority Date/Time Associated Diagnosis Comments SCAN - LABS 07/26/2018 documented in this encounter Results * SCAN - LABS (07/26/2018) us Provider Scanning Final Result documented in this encounter Visit Diagnoses Not on filedocumented in this encounter Care Teams Clinical Dermatologist Relationship Specialty Start Date End Date Salvatore Mooney MD PCP - General 06/12/16 Kayleigh Valderrama MD [address] [place] [address] Radiation Oncologist Radiation Oncology 10/23/17 Pattie Alvarez MD [address] [place] [address] Surgeon Surgical Oncology 10/23/17 Gregory Quinteros MD [address] [place] [address] Referring Physician Medical Oncology 10/23/17 10/20/19 Louann Bolden MD [address] [place] [address] [place] [address] Surgeon Plastic Surgery 10/23/17 Nargis Wilson, PhD [address] [place] [facility] [address] [place] [address] Nurse Practitioner Radiation Oncology 10/23/17 Henry Carr MD [address] [address] [address] Medical Oncologist/Shaper And Presser Medical Oncology 10/21/18 documented as of this encounter
--- OUTSIDE RECORDS SUMMARY | 2025-04-12 12:06 | XMS_ITS ---
Author Organization [facility] Address [address] [address] Care Team Providers Care Certified Registered Locksmith Name Role Phone Salvatore Mooney MD Primary Care Provider [phone] Kayleigh Valderrama MD Unavailable Pattie Alvarez MD Unavailable [phone] Louann Bolden MD Unavailable [phone] Nargis Wilson PhD Unavailable [phone] Henry Carr MD Unavailable [phone] Active Problems Problem Noted Date Diagnosed Date Near syncope 04/23/2023 Assessment & Plan (04/23/2023 2:36 PM PATTERN MECHANIC): Exam is benign If reoccurs to contact us and will obtain ECHO Hyperlipidemia 06/22/2022 Assessment & Plan (06/22/2022 9:31 AM PATTERN MECHANIC): Lipids at goal Continue atorvastatin 20mg Goal of 150 min/weekly of moderate intensity activity Labs today Exposed breast implant 04/26/2022 Overview (04/26/2022): Added automatically from request for surgery [id number] Encounter for monitoring aromatase inhibitor the rapy 12/01/2020 Osteoporosis 08/30/2020 Anxiety 04/30/2020 Assessment & Plan (06/22/2022 9:29 AM PATTERN MECHANIC): Doing on sertraline 25mg 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, estrogen receptor positive 10/23/2017 Cancer Staging:Clinical: Unsigned Pathologic:Stage IB(pT1c, pN1a(sn), cM0, G3, ER: Positive, [place]: Positive, HER2: Negative) - Unsigned Encounter for follow-up surveillance of breast c ancer 10/23/2017 Current Treatment and Therapy Plans No current plan information found. Other Current Plans Zoledronic Acid (Reclast) Infusion* Plan Start Date:11/29/2023 Plan Provider:Arthur Beckman MD Linked Problems Age-related osteoporosis wit hout current pathological fracture Treatment Medications No medications scheduled. Past Treatment and Therapy Plans Resolved Problems Problem Noted Date Diagnosed Date Resolved Date Osteopenia of multiple sites 08/30/2020 04/23/2023
--- OUTSIDE RECORDS SUMMARY | 2025-04-12 12:06 | XMS_ITS | Clinical Summary ---
Author Organization [facility] Address [address] [place] [address] Care Team Providers Care Weaver Apprentice Name Role Phone Salvatore Mooney MD Primary Care Provider [phone] [facility],non-owned Affiliates and Associated Physician Practices is amultiple site organization consisting of ambulatory clinics and hospital sitesin [place], [place], [place] and [place]. This disclosure is being madepursuant to the Care Everywhere program and may not contain all information available regarding this patient. Last updated 18.[facility] Allergies Active Allergy Reactions Criticality Noted Date Comments Citalopram Rash Medium 05/14/2014 Medications * Be aware that medications may not be up to date on this document. Alwaysverify current medications with the patient. tamoxifen (NOLVADEX) 20 MG tablet Take 20 mg by mouth once daily Active sertraline (ZOLOFT) 25 MG tablet Take 25 mg by mouth once daily Active Calcium Carb-Cholecalci ferol (CALTRATE 600+D3 PO) Take by mouth once daily Active Bacillus Coagulans-Inuli n (PROBIOTIC-PREB IOTIC PO) Active OtherIndication s:heavenly hair Reasons: heavenly hair Active folic acid 400 MCG tablet Take 400 mcg by mouth once daily Active Active Problems Problem Noted Date Diagnosed Date Other intervertebral disc displacement, lumbar r egion 05/14/2014 Immunizations Immunization Administration Dates Next Due INFLUENZA VACCINE, QUADR. (F LUZONE; FLULAVAL; FLUARIX; AFLURIA QUADRIVALENT; 6MO+), 0.5 ML (IIV4) 01/31/2020,02/14/2019 iNFLUENZA VACCINE, RECOM-VALDEZ, QUADR. (FLUBLOCK QUADRIVALENT; 18Y+) (RIV4) 02/01/2018 Family History Medical History Relation Name Comments CAD (Coronary Artery Disease) Maternal Uncle Cancer - Colon Maternal Uncle Osteoporosis Mother Cancer - Colon Other pgreat gmother CAD (Coronary Artery Disease) Paternal Grandmother Cancer - Ovarian Paternal Grandmother Relation Name Status Comments Maternal Uncle Mother Other pgreat gmother Alive Paternal Grandmother Social History Tobacco Use Types Packs/Day Years Used Date Smoking Tobacco: Never Smokeless Tobacco: Never Alcohol Use Standard Drinks/Week Comments Yes 1.7 (1 standard drink = 0.6 oz p ure alcohol) Comments No Sex and Gender Information Value Date Recorded Sex Assigned at Not on file Legal Sex Female 6:20 PM X RAY NURSE Gender Identity Not on file Sexual Orientation Not on file Last Filed Vital Signs Vital Sign Reading Time Taken Comments Blood Pressure 142/76 07/10/2018 10:19 AM CDT Pulse 81 07/09/2014 1:03 PM CDT Temperature 36.8 C (98.3 F) 06/26/2014 9:45 AM CDT Respiratory Rate 16 06/26/2014 9:45 AM CDT Oxygen Saturation 100% 06/26/2014 10:45 AM CDT Inhaled Oxygen Concentration - - Weight 71.2 kg (157 lb) 07/10/2018 10:19 AM CDT Height 172.7 cm (5' 8) 07/10/2018 10:19 AM CDT Body Mass Index 23.87 07/10/2018 10:19 AM CDT Plan of Treatment Health Maintenance Due Date Last Done Comments COLOGUARD (AGES 45-75) - COLON CA SCREENING 1968 COLON MONITORING 1968 COLONOSCOPY - COLON CA SCREENING 1968 CT COLONOGRAPHY - COLON CA SCREENING 1968 Colorectal Cancer Screening 1968 FIT - COLON CA SCREENING 1968 FLEX SIG - COLON CA SCREENING 1968 LIPID TESTING 1968 MAMMOGRAM 1968 HIV SCREENING 01/23/1983 HEPATITIS C SCREENING 01/19/1986 DTAP/TDAP/TD VACCINES (1 - Tdap) 01/23/1987 HEPATITIS B VACCINE (1 of 3 - 19+ 3-dose series) 01/23/1987 PNEUMOCOCCAL VACCINE 50+ (1 of 1 - PCV) 01/23/2018 ZOSTER VACCINE (1 of 2) 01/23/2018 DEPRESSION SCREENING 04/16/2024 COVID-19 VACCINE (1 - 2024- season) 2024 INFLUENZA VACCINE (#1) 2024 0, 02/14/2019, 02/01/2018, Additional history exists HIB VACCINE Aged Out No longer eligi ble based on patient's age to complete this topic HPV VACCINE Aged Out No longer eligi ble based on patient's age to complete this topic MENINGOCOCCAL (Group B) VACCINE SHARED DECISION-MAKING Aged Out No longer eligible based on patient's age to complete this topic MENINGOCOCCAL GROUPS A/C/Y/W VACCINE Aged Out No longer eligible based on patient's age to complete this topic Insurance [facility]M Care Teams Weaver Apprentice Relationship Specialty Start Date End Date Salvatore Mooney MD PCP - General 04/30/14
--- OUTSIDE RECORDS SUMMARY | 2025-04-12 12:06 | XMS_ITS | Encounter Summary ---
Author Organization [facility] Address [address] [place] [address] Phone Care Team Providers Care Case Management Associate Name Role Phone Salvatore Mooney MD Primary Care Provider [phone] Kayleigh Valderrama MD Unavailable Pattie Alvarez MD Unavailable [phone] Gregory Quinteros MD Unavailable [phone] Louann Bolden MD Unavailable [phone] Nagris Wilson PhD Unavailable [phone] Henry Carr MD Unavailable [phone] Encounter Details Date Type Department Care Team (Latest Contact Info) Description 08/17/2018 Orders Only [facility] Scanning, Provider Social History Tobacco Use Types Packs/Day Years Used Date Smoking Tobacco: Never Smokeless Tobacco: Never Alcohol Use Standard Drinks/Week Comments Yes 0 (1 standard drink = 0.6 oz pur e alcohol) rare Comments No Sex and Gender Information Value Date Recorded Sex Assigned at Not on file Legal Sex Female 2:44 PM INFECTION PREVENTION SPECIALIST Gender Identity Female 04/29/2020 6:50 PM INFECTION PREVENTION SPECIALIST Sexual Orientation Straight 04/29/2020 6: 50 PM INFECTION PREVENTION SPECIALIST documented as of this encounter Plan of Treatment Not on file documented as of this encounter Procedures Procedure Name Priority Date/Time Associated Diagnosis Comments SCAN - RADIOLOGY/IMAGING 08/17/2018 documented in this encounter Results * SCAN - RADIOLOGY/IMAGING (08/17/2018) Anatomical Region Laterality Modality Other us Provider Scanning Final Result documented in this encounter Visit Diagnoses Not on filedocumented in this encounter Care Teams Case Management Associate Relationship Specialty Start Date End Date Salvatore Mooney MD PCP - General 06/12/16 Kayleigh Valderrama MD [address] [place] [address] Radiation Oncologist Radiation Oncology 10/23/17 Pattie Alvarez MD [address] [place] [address] Surgeon Surgical Oncology 10/23/17 Gregory Quinteros MD [address] [place] [address] Referring Physician Medical Oncology 10/23/17 10/20/19 Louann Bolden MD [address] [facility] [address] [place] [address] Surgeon Plastic Surgery 10/23/17 Nargis Wilson, PhD [address] [facility] [address] [place] [address] Nurse Practitioner Radiation Oncology 10/23/17 Henry Carr MD [address] [facility] [address] [place] [address] Medical Oncologist/Single Pass Soil Stabilizer Operator Medical Oncology 10/21/18 documented as of this encounter
--- OUTSIDE RECORDS SUMMARY | 2025-04-12 12:06 | XMS_ITS | Encounter Summary ---
Author Organization [facility] Address [address] [place] [address] Phone Care Team Providers Care Aerotriangulation Specialist Name Role Phone Salvatore Mooney MD Primary Care Provider [phone] Kayleigh Valderrama MD Unavailable Pattie Alvarez MD Unavailable [phone] Louann Bolden MD Unavailable [phone] Nargis Wilson PhD Unavailable [phone] Henry Carr MD Unavailable [phone] Encounter Details Date Type Department Care Team (Latest Contact Info) Description 04/24/2024 Orders Only [facility] Scanning, Provider [...] on file Legal Sex Female 2:44 PM TRAWL NET MAKER Gender Identity Female 04/29/2020 6:50 PM TRAWL NET MAKER Sexual Orientation Straight 04/29/2020 6: 50 PM TRAWL NET MAKER documented as of this encounter Plan of Treatment Not on file documented as of this encounter Procedures Procedure Name Priority Date/Time Associated Diagnosis Comments SCAN - PATHOLOGY 04/24/2024 documented in this encounter Results * SCAN - PATHOLOGY (04/24/2024) Provider Scanning Final Result documented in this encounter Visit Diagnoses Not on filedocumented in this encounter Care Teams Aerotriangulation Specialist Relationship Specialty Start Date End Date Salvatore Mooney MD PCP - General 06/12/16 Kayleigh Valderrama MD [address] [place] [address] Radiation Oncologist Radiation Oncology 10/23/17 Pattie Alvarez MD [address] [place] [address] Surgeon Surgical Oncology 10/23/17 Louann Bolden MD [address] [place] [address] [place] [address] Surgeon Plastic Surgery 10/23/17 Nargis Wilson, PhD [address] [place] [address] [place] [address] Nurse Practitioner Radiation Oncology 10/23/17 Henry Carr MD [address] [place] [address] [place] [address] Medical Oncologist/Clothing Patternmaker Medical Oncology 10/21/18 documented as of this encounter
--- OUTSIDE RECORDS SUMMARY | 2025-04-12 12:06 | XMS_ITS | Encounter Summary ---
Author Organization [facility] Address [address] [place] [address] Phone Care Team Providers Care Car Bracer Name Role Phone Salvatore Mooney MD Primary Care Provider [phone] Kayleigh Valderrama MD Unavailable Pattie Alvarez MD Unavailable [phone] Louann Bolden MD Unavailable [phone] Nargis Wilson PhD Unavailable [phone] Henry Carr MD Unavailable Encounter Details Date Type Department Care Team (Late st Contact Info) Description 12/25/[address] [place] [address] Kecia Saxena RN Social History Tobacco Use Types Packs/Day Years [...] more drinks on one occasion? Never 04/26/2022 Comments No Sex and Gender Information Value Date Recorded Sex Assigned at Not on file Legal Sex Female 2:44 PM GAS APPLIANCE INSTALLER Gender Identity Female 04/29/2020 6:50 PM GAS APPLIANCE INSTALLER Sexual Orientation Straight 04/29/2020 6: 50 PM GAS APPLIANCE INSTALLER documented as of this encounter Plan of Treatment Not on file documented as of this encounter Visit Diagnoses Not on filedocumented in this encounter Care Teams Car Bracer Relationship Specialty Start Date End Date Salvatore Mooney MD PCP - General 06/12/16 Kayleigh Valderrama MD [address] [place] [address] Radiation Oncologist Radiation Oncology 10/23/17 Pattie Alvarez MD [address] [place] [address] Surgeon Surgical Oncology 10/23/17 Louann Bolden MD [address] [place] [address] [place], [place] [address] Surgeon Plastic Surgery 10/23/17 Nargis Wilson, PhD [address] [place] [address] [place], [place] [address] Nurse Practitioner Radiation Oncology 10/23/17 Henry Carr MD [address] [place] [address] [place], [place] [address] Medical Oncologist/Auto Repair Shop Manager Medical Oncology 10/21/18 documented as of this encounter
--- NOTE | 2025-04-12 12:07 | ECG_ITS ---
Test Date: 2025-04-12 12:11:01 Measurements Intervals [place] Rate: 115 P: 82 WV: 135 QRS: 78 QRSD: 86 T: 90 QT: 310 QTc: 429 Interpretive Statements SINUS TACHYCARDIA POSSIBLE LEFT ATRIAL ENLARGEMENT ST-T WAVE ABNORMALITY IN ANTEROLAT/INF LEADS- CONSIDER ISCHEMIA BASELINE ARTIFACT- I, II, III, AVR, AVL, AVF, V1-V2 ABNORMAL ECG No previous ECG available for comparison Electronically Signed On 04-12-2025 20:34:18 PACKING HOUSE SUPERVISOR by Norman Redmond D.O.
--- NOTE | 2025-04-12 12:13 | PC.NURSE ---
RN spoke with MD Blount, no stroke stop needed at this time.
--- NOTE | 2025-04-12 13:04 | ECG_ITS ---
Test Date: 2025-04-12 16:02:43 Measurements Intervals [place] Rate: 110 P: 82 MA: 138 QRS: 76 QRSD: 82 T: 76 QT: 341 QTc: 462 Interpretive Statements SINUS TACHYCARDIA POSSIBLE LEFT ATRIAL ENLARGEMENT NONSPECIFIC ST & T-WAVE ABNORMALITY- ANTEROLAT/INF LEADS BASELINE ARTIFACT- I ABNORMAL ECG Compared to ECG 04/12/2025 12:11:01 POSSIBLE ISCHEMIA NO LONGER PRESENT Electronically Signed On 04-12-2025 20:22:11 CANVAS GOODS MAKER by Norman Redmond D.O.
[2025-04-12] MEDS: LORazepam INJ (*CRX) 2 MG/ML VIAL 0.5 MG IV PUSH (13:25)
[2025-04-12] MEDS: SODIUM CHLORIDE 0.9% IV 1,000 ML 999 ML IV CONT (13:26)
--- OUTSIDE RECORDS SUMMARY | 2025-04-12 13:31 | XMS_ITS | Encounter Summary ---
Author Organization [facility] Address [address] [place] [address] Phone Care Team Providers Care Respiratory Therapist Name Role Phone Salvatore Mooney MD Primary Care Provider [phone] Kayleigh Valderrama MD Unavailable Pattie Alvarez MD Unavailable [phone] Louann Bolden MD Unavailable [phone] Nargis Wilson PhD Unavailable [phone] Henry Carr MD Unavailable [phone] Encounter Details Date Type Department Care Team (Late st Contact Info) Description 12/25/[address] [place] [address] Kecia Saxena RN Social History [...] on file Legal Sex Female 2:44 PM VETERANS SERVICES SPECIALIST Gender Identity Female 04/29/2020 6:50 PM VETERANS SERVICES SPECIALIST Sexual Orientation Straight 04/29/2020 6: 50 PM VETERANS SERVICES SPECIALIST documented as of this encounter Plan of Treatment Not on file documented as of this encounter Visit Diagnoses Not on filedocumented in this encounter Care Teams Respiratory Therapist Relationship Specialty Start Date End Date Salvatore Mooney MD PCP - General 06/12/16 Kayleigh Valderrama MD [address] [place] [address] Radiation Oncologist Radiation Oncology 10/23/17 Pattie Alvarez MD [address] [place] [address] Surgeon Surgical Oncology 10/23/17 Louann Bolden MD [address] [place] [address] [place], [place] [address] Surgeon Plastic Surgery 10/23/17 Nargis Wilson, PhD [address] [place] [address] [place], [place] [address] Nurse Practitioner Radiation Oncology 10/23/17 Henry Carr MD [address] [place] [address] [place], [place] [address] Medical Oncologist/Manager Systems Medical Oncology 10/21/18 documented as of this encounter
--- OUTSIDE RECORDS SUMMARY | 2025-04-12 13:31 | XMS_ITS | Encounter Summary ---
Author Organization [facility] Address [address] [place] [address] Phone Care Team Providers Care Charter Driver Name Role Phone Salvatore Mooney MD Primary Care Provider [phone] Kayleigh Valderrama MD Unavailable Pattie Alvarez MD Unavailable Louann Bolden MD Unavailable [phone] Nargis Wilson PhD Unavailable [phone] Henry Carr MD Unavailable [phone] Encounter Details Date Type Department Care Team [...] on file Legal Sex Female 2:44 PM TOBACCO SORTER Gender Identity Female 04/29/2020 6:50 PM TOBACCO SORTER Sexual Orientation Straight 04/29/2020 6: 50 PM TOBACCO SORTER documented as of this encounter Plan of Treatment Not on file documented as of this encounter Procedures Procedure Name Priority Date/Time Associated Diagnosis Comments SCAN - PATHOLOGY 04/24/2024 documented in this encounter Results * SCAN - PATHOLOGY (04/24/2024) Provider Scanning Final Result documented in this encounter Visit Diagnoses Not on filedocumented in this encounter Care Teams Charter Driver Relationship Specialty Start Date End Date Salvatore Mooney MD PCP - General 06/12/16 Kayleigh Valderrama MD [address] [place] [address] Radiation Oncologist Radiation Oncology 10/23/17 Pattie Alvarez MD [address] [place] [address] Surgeon Surgical Oncology 10/23/17 Louann Bolden MD [address] [place] [address] [place] [address] Surgeon Plastic Surgery 10/23/17 Nargis Wilson, PhD [address] [place] [address] [place] [address] Nurse Practitioner Radiation Oncology 10/23/17 Henry Carr MD [address] [place] [address] [place] [address] Medical Oncologist/Business Information Analyst Medical Oncology 10/21/18 documented as of this encounter
--- OUTSIDE RECORDS SUMMARY | 2025-04-12 13:31 | XMS_ITS ---
Author Organization [facility] Address [address] [address] Care Team Providers Care Correspondence School Instructor Name Role Phone Salvatore Mooney MD Primary Care Provider [phone] Kayleigh Valderrmaa MD Unavailable Pattie Alvarez MD Unavailable [phone] Louann Bolden MD Unavailable Nargis Wilson PhD Unavailable [phone] Henry Carr MD Unavailable [phone] Active Problems Problem Noted Date Diagnosed Date Near syncope 04/23/2023 Assessment & Plan (04/23/2023 2:36 PM SOCIAL MEDIA CAMPAIGN MANAGER): Exam is benign If reoccurs to contact us and will obtain ECHO Hyperlipidemia 06/22/2022 Assessment & Plan (06/22/2022 9:31 AM SOCIAL MEDIA CAMPAIGN MANAGER): Lipids at goal Continue atorvastatin 20mg Goal of 150 min/weekly of moderate intensity activity Labs today Exposed breast implant 04/26/2022 Overview (04/26/2022): Added automatically from request for surgery [id number] Encounter for monitoring aromatase inhibitor the rapy 12/01/2020 Osteoporosis 08/30/2020 Anxiety 04/30/2020 Assessment & Plan (06/22/2022 9:29 AM SOCIAL MEDIA CAMPAIGN MANAGER): Doing on sertraline 25mg 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
--- OUTSIDE RECORDS SUMMARY | 2025-04-12 13:31 | XMS_ITS | Clinical Summary ---
Author Organization [facility] Address [address] [address] Care Team Providers Care Director Outcomes Name Role Phone Salvatore Mooney MD Primary Care Provider [phone] Kayleigh Valderrama MD Unavailable Pattie Alvarez MD Unavailable [phone] Louann Bolden MD Unavailable [phone] Nargis Wilson PhD Unavailable [phone] Henry Carr MD Unavailable [phone] Allergies Active Allergy Reactions Criticality Noted Date [...] 04/23/2023 Assessment & Plan (04/23/2023 2:36 PM WAREHOUSE SHIFT SUPERVISOR): Exam is benign If reoccurs to contact us and will obtain ECHO Hyperlipidemia 06/22/2022 Assessment & Plan (06/22/2022 9:31 AM WAREHOUSE SHIFT SUPERVISOR): Lipids at goal Continue atorvastatin 20mg Goal of 150 min/weekly of moderate intensity activity Labs today Exposed breast implant 04/26/2022 Overview (04/26/2022): Added automatically from request for surgery [id number] Encounter for monitoring aromatase inhibitor the rapy 12/01/2020 Osteoporosis 08/30/2020 Anxiety 04/30/2020 Assessment & Plan (06/22/2022 9:29 AM WAREHOUSE SHIFT SUPERVISOR): Doing on sertraline 25mg 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, estrogen receptor positive 10/23/2017 Cancer Staging:Clinical: Unsigned Pathologic:Stage IB(pT1c, pN1a(sn), cM0, G3, ER: Positive, IA: Positive, HER2: Negative) - Unsigned Encounter for [...] on file Legal Sex Female 2:44 PM WAREHOUSE SHIFT SUPERVISOR Gender Identity Female 04/29/2020 6:50 PM WAREHOUSE SHIFT SUPERVISOR Sexual Orientation Straight 04/29/2020 6: 50 PM WAREHOUSE SHIFT SUPERVISOR Last Filed Vital Signs Vital Sign Reading [...] 11/26/2034 11/26/2024 Medical Devices Explanted Type Area Field Inspector Device Identifier Shelf Expiration Date Model / Serial / Lot Allergan Breast Implant Style Srx Explanted:Qty: 1 on 04/28/2022 by Louann Bolden MD at [facility] Breast Left: Breast [id number] / / [id number] Procedures Procedure Name Priority Date/Time Associated Diagnosis [...] compared to prior imaging studies performed at [facility] on 10/20/2021, 10/25/2022 and 09/04/2023. There are [...] compared to prior imaging studies performed at [facility] on 10/20/2021, 10/25/2022 and 09/04/2023. There are [...] Most Recently Relevant to Health Maintenance Insurance [facility] [facility] CHOICE OOS [facility] CHO[facility] H[facility]PPO Address: [address] [address] [place] [address] [place] CHOICE OOS Care Teams Director Outcomes Relationship Specialty Start Date End Date Salvatore Mooney MD PCP - General 06/12/16 Kayleigh Valderrama MD [address] [place] [address] Radiation Oncologist Radiation Oncology 10/23/17 Pattie Alvarez MD [address] [place] [address] Surgeon Surgical Oncology 10/23/17 Louann Bolden MD [address] [place] [address] [place], [place] [address] Surgeon Plastic Surgery 10/23/17 Nargis Wilson, PhD [address] [place] [address] [place] [address] Nurse Practitioner Radiation Oncology 10/23/17 Henry Carr MD [address] [place] [address] [place], [place] [address] Medical Oncologist/Data Technician Medical Oncology 10/21/18
--- OUTSIDE RECORDS SUMMARY | 2025-04-12 13:31 | XMS_ITS | Clinical Summary ---
Author Organization [facility] Address [address] [place] [address] Care Team Providers Care Inhalation Therapy Teacher Name Role Phone Salvatore Mooney MD Primary Care Provider [phone] Source Comments [facility],non-owned Affiliates and Associated Physician Practices is amultiple site organization consisting of ambulatory clinics and hospital sitesin [place], [place], [place] and [place]. This disclosure is being madepursuant to the Care Everywhere program and may not contain all information available regarding this patient. Last updated 18.[facility] Allergies Active Allergy Reactions Criticality Noted Date [...] on file Legal Sex Female 6:20 PM PLUGGER WORKER Gender Identity Not on file Sexual Orientation [...] age to complete this topic Insurance [facility] Care Teams Inhalation Therapy Teacher Relationship Specialty Start Date End Date Salvatore Mooney MD PCP - General 04/30/14
--- OUTSIDE RECORDS SUMMARY | 2025-04-12 13:31 | XMS_ITS | Encounter Summary ---
Author Organization [facility] Address [address] [place] [address] Phone Care Team Providers Care Manager Quality Improvement Name Role Phone Salvatore Mooney MD Primary Care Provider [phone] Kayleigh Valderrama MD Unavailable Pattie Alvarez MD Unavailable [phone] Gregory Quinteros MD Unavailable [phone] Louann Bolden MD Unavailable [phone] Nargis Wilson PhD Unavailable [phone] Henry Carr MD Unavailable [phone] Encounter Details Date Type Department Care Team [...] on file Legal Sex Female 2:44 PM SPECIALTY PLANT SUPERVISOR Gender Identity Female 04/29/2020 6:50 PM SPECIALTY PLANT SUPERVISOR Sexual Orientation Straight 04/29/2020 6: 50 PM SPECIALTY PLANT SUPERVISOR documented as of this encounter Plan of Treatment Not on file documented as of this encounter Procedures Procedure Name Priority Date/Time Associated Diagnosis Comments SCAN - RADIOLOGY/IMAGING 08/17/2018 documented in this encounter Results * SCAN - RADIOLOGY/IMAGING (08/17/2018) Anatomical Region Laterality Modality Other us Provider Scanning Final Result documented in this encounter Visit Diagnoses Not on filedocumented in this encounter Care Teams Manager Quality Improvement Relationship Specialty Start Date End Date Salvatore Mooney MD PCP - General 06/12/16 Kayleigh Valderrama MD [address] [place] [address] Radiation Oncologist Radiation Oncology 10/23/17 Pattie Alvarez MD [address] [place] [address] Surgeon Surgical Oncology 10/23/17 Gregory Quinteros MD [address] [place] [address] Referring Physician Medical Oncology 10/23/17 10/20/19 Louann Bolden MD [address] [facility] [address] [place] [address] Surgeon Plastic Surgery 10/23/17 Nargis Wilson, PhD [address] [facility] [address] [place] [address] Nurse Practitioner Radiation Oncology 10/23/17 Henry Carr MD [address] [facility] [address] [place] [address] Medical Oncologist/Bargeman Medical Oncology 10/21/18 documented as of this encounter
--- OUTSIDE RECORDS SUMMARY | 2025-04-12 13:31 | XMS_ITS | Encounter Summary ---
Author Organization [facility] Address [address] [place] [address] Phone Care Team Providers Care Dull Coat Mill Operator Name Role Phone Salvatore Mooney MD Primary Care Provider [phone] Kayleigh Valderrama MD Unavailable Pattie Alvarez MD Unavailable [phone] Gregory Quinteros MD Unavailable [phone] Louann Bolden MD Unavailable [phone] Nargis Wilson PhD Unavailable [phone] Henry Carr MD Unavailable [phone] Encounter Details Date Type Department Care Team [...] on file Legal Sex Female 2:44 PM CLAM BED WORKER Gender Identity Female 04/29/2020 6:50 PM CLAM BED WORKER Sexual Orientation Straight 04/29/2020 6: 50 PM CLAM BED WORKER documented as of this encounter Plan of Treatment Not on file documented as of this encounter Procedures Procedure Name Priority Date/Time Associated Diagnosis Comments SCAN - LABS 07/26/2018 documented in this encounter Results * SCAN - LABS (07/26/2018) us Provider Scanning Final Result documented in this encounter Visit Diagnoses Not on filedocumented in this encounter Care Teams Dull Coat Mill Operator Relationship Specialty Start Date End Date Salvatore Mooney MD PCP - General 06/12/16 Kayleigh Valderrama MD [address] [place] [address] Radiation Oncologist Radiation Oncology 10/23/17 Pattie Alvarez MD [address] [place] [address] Surgeon Surgical Oncology 10/23/17 Gregory Quinteros MD [address] [place] [address] Referring Physician Medical Oncology 10/23/17 10/20/19 Louann Bolden MD [address] [place] [facility] [address] [place] [address] Surgeon Plastic Surgery 10/23/17 Nargis Wilson, PhD [address] [place] [facility] [address] [place] [address] Nurse Practitioner Radiation Oncology 10/23/17 Henry Carr MD [address] [place] [address] [address] Medical Oncologist/Pearl Fisherman Medical Oncology 10/21/18 documented as of this encounter
--- OUTSIDE RECORDS SUMMARY | 2025-04-12 13:31 | XMS_ITS | Encounter Summary ---
Author Organization [facility] Address [address] [place] [address] Phone Care Team Providers Care Panel Edge Painter Name Role Phone Salvatore Mooney MD Primary Care Provider [phone] Kayleigh Valderrama MD Unavailable Pattie Alvarez MD Unavailable [phone] Louann Bolden MD Unavailable [phone] Nargis Wilson PhD Unavailable [phone] Henry Carr MD Unavailable [phone] Encounter Details Date Type Department Care Team [...] on file Legal Sex Female 2:44 PM RATTLESNAKE FARMER Gender Identity Female 04/29/2020 6:50 PM RATTLESNAKE FARMER Sexual Orientation Straight 04/29/2020 6: 50 PM RATTLESNAKE FARMER documented as of this encounter Plan of Treatment Not on file documented as of this encounter Procedures Procedure Name Priority Date/Time Associated Diagnosis Comments SCAN - PATHOLOGY 2024 documented in this encounter Results * SCAN - PATHOLOGY (2024) Provider Scanning Final Result documented in this encounter Visit Diagnoses Not on filedocumented in this encounter Care Teams Panel Edge Painter Relationship Specialty Start Date End Date Salvatore Mooney MD PCP - General 06/12/16 Kayleigh Valderrama MD [address] [place] [address] Radiation Oncologist Radiation Oncology 10/23/17 Pattie Alvarez MD [address] [place] [address] Surgeon Surgical Oncology 10/23/17 Louann Bolden MD [address] [address] [place] [address] Surgeon Plastic Surgery 10/23/17 Nargis Wilson, PhD [address] [place] [address] [place] [address] Nurse Practitioner Radiation Oncology 10/23/17 Henry Carr MD [address] [place] [address] [place] [address] Medical Oncologist/Public Address Announcer Medical Oncology 10/21/18 documented as of this encounter
--- OUTSIDE RECORDS SUMMARY | 2025-04-12 13:31 | XMS_ITS | Encounter Summary ---
Author Organization [facility] Address [address] [place] [address] Phone Care Team Providers Care Community Recreation Programmer Name Role Phone Salvatore Mooney MD Primary Care Provider [phone] Kayleigh Valderrama MD Unavailable Pattie Alvarez MD Unavailable [phone] Greogry Quinteros MD Unavailable [phone] Louann Bolden MD Unavailable [phone] Nargis Wilson PhD Unavailable [phone] Henry Carr MD Unavailable [phone] Encounter Details Date Type Department Care Team [...] on file Legal Sex Female 2:44 PM PORTFOLIO ARCHITECT Gender Identity Female 04/29/2020 6:50 PM PORTFOLIO ARCHITECT Sexual Orientation Straight 04/29/2020 6: 50 PM PORTFOLIO ARCHITECT documented as of this encounter Plan of Treatment Not on file documented as of this encounter Procedures Procedure Name Priority Date/Time Associated Diagnosis Comments SCAN - LABS 07/26/2018 documented in this encounter Results * SCAN - LABS (07/26/2018) us Provider Scanning Final Result documented in this encounter Visit Diagnoses Not on filedocumented in this encounter Care Teams Community Recreation Programmer Relationship Specialty Start Date End Date Salvatore Mooney MD PCP - General 06/12/16 Kayleigh Valderrama MD [address] [place] [address] Radiation Oncologist Radiation Oncology 10/23/17 Pattie Alvarez MD [address] [place] [address] Surgeon Surgical Oncology 10/23/17 Gregory Quinteros MD [address] [place] [id number] Referring Physician Medical Oncology 10/23/17 10/20/19 Louann Bolden MD [address] [facility] [address] [place] [address] Surgeon Plastic Surgery 10/23/17 Nargis Wilson, PhD [address] [facility] [address] [place] [address] Nurse Practitioner Radiation Oncology 10/23/17 Henry Carr MD [address] [address] Medical Oncologist/Tree Wrapper Medical Oncology 10/21/18 documented as of this encounter
[2025-04-12 13:45] LABS: Hematocrit 40.3 % (37.0-47.0); Hemoglobin 13.8 g/dL (12.0-15.0); Immature Granulocyte Percent A 0.4 % (0-0.5); Lymphocytes Absolute Auto 2.44 K/mm3 (0.9-3.2); Mean Corpuscular HGB Conc 34.2 g/dl (32-36); Mean Corpuscular Hemoglobin 30.3 pg (26-34); Mean Corpuscular Volume 88.4 fl (80-100); Nucleated Red Blood Cells Absolute Auto 0.000 K/mm3 (0.0-0.012); Nucleated Red Blood Cells Perc 0.0 % (0.0-0.2); Platelet Count Result 198 k/mm3 (150-375); Red Blood Count 4.56 M/mm3 (4.2-5.4); White Blood Count 11.1 K/mm3 (4.5-10.0)
[2025-04-12 13:57] LABS: INR 1.1; Partial Thromboplastin Time 24.0 Seconds (22.3-36.8); Prothrombin Time 13.7 Seconds (11.1-14.7)
[2025-04-12 14:00] LABS: Alanine Aminotransferase 31 U/L (6-35); Albumin Level 4.7 g/dL (3.5-5.1); Alkaline Phosphatase 58 U/L (38-126); Anion Gap 15 mmol/L (4-12); Aspartate Amino Transferase 36 U/L (14-36); Bilirubin,Total 0.9 mg/dL (0.2-1.3); Blood Urea Nitrogen 15 mg/dL (7-17); Calcium 9.6 mg/dL (8.4-10.2); Carbon Dioxide 20 mmol/L (22-30); Chloride 102 mmol/L (98-107); Estimated Glomerular Filt Rate > 60; Glucose 125 mg/dL (65-110); Sodium 137 mmol/L (137-145); Total Protein 7.6 g/dL (6.3-8.2)
[2025-04-12 14:11] LABS: NT Pro B Type Natriuretic Pept 77 pg/mL (19.9-100); Troponin I 0.020 ng/mL (0.000-0.034)
[2025-04-12] MEDS: POTASSIUM CHLORIDE 20 MEQ ER TABLET 40 MEQ PO (14:16)
[2025-04-12] MEDS: KCL 20 MEQ/SW 100 ML 100 ML 50 MEQ IVPB (14:16)
[2025-04-12 14:29] LABS: Thyroid Stimulating Hormone Reflex 3.840 uIU/mL (0.465-4.68)
[2025-04-12] MEDS: SODIUM CHLORIDE 0.9% IV 500 ML 999 ML (14:32)
[2025-04-12 16:23] LABS: Add Urine Microscopic? YES; Appearance Urine Clear (Clear); Glucose Urine UA Negative (Negative); Leukocyte Esterase Ur Trace LEU/UL (Negative); Nitrate Urine Negative (Negative); Non Pathogenic Casts 0-2; Specific Grav Ur 1.031 (1.001-1.035)
--- NOTE | 2025-04-12 18:19 | ED_ITS ---
HPI - General Adult General Chief complaint: Anxiety Stated complaint: panic attack Time Seen by Provider: 04/12/25 12:46 History of Present Illness HPI narrative: Patient is a 55-year-old female who presents ER with anxiousness and body tingling. Started shortly prior to arrival. Tingling as pins and needle type across her body. She has gross sensation exam. No slurred speech. No arm weakness. No nausea or vomiting. She has been undergoing a lot of stress due to the of the family member recently and has been helping her mom with issues secondary to the . No new medications. No chest pain. Has not had similar Related Data Home Medications ?Medication ?Instructions ?Recorded ?Confirmed ?Last Taken ?Type anastrozole 1 mg tablet 1 mg PO DAILY 04/11/2202/1005/11/22 History atorvastatin 20 mg tablet 20 mg PO DAILY 04/11/2201/1505/11/22 History sertraline 25 mg tablet 25 mg PO DAILY 04/11/2201/1505/11/22 History Allergies Allergy/AdvReac Type Severity Reaction Status Date / Time citalopram Allergy Mild rash Verified 04/12/25 12:04 Review of Systems 2 Review of Systems: All systems reviewed & are unremarkable except as noted in HPI and below Constitutional: Constitutional: Reports no additional constitutional complaints Cardiovascular: Cardiovascular: Reports no additional cardiovascular complaints Respiratory: Respiratory: Reports no additional respiratory complaints Gastrointestinal: Gastrointestinal: Reports no additional gastrointestinal complaints Musculoskeletal: Musculoskeletal: Reports no additional musculoskeletal complaints PMFSH Past Medical History Medical History Anxiety Avulsion fracture of left calcaneus Breast cancer Depression Hypercholesterolemia Left ankle pain Social History Social History Smoking status: Never smoker Alcohol intake: current Drinks per week: 1 Substance use: never Substance use type: does not use Living arrangements: with family Spiritual care concerns: No Exam 2 Narrative: GENERAL: Well-appearing, well-nourished, and in no acute distress. HEAD: Normocephalic, atraumatic. EYES: PERRL and EOMI. ENT: Mucous membranes moist. CHEST: Clear to auscultation. No respiratory distress. HEART: Tachycardic regular. Normal peripheral pulses. ABDOMEN: Soft, nontender, nondistended. EXTREMITIES: Normal range of motion. No edema. SKIN: Warm, dry, no rash. NEURO: Alert and oriented x3. PSYCH: Normal mood and affect. Course Course Emergency Course: Patient with hypokalemia. Received 20 mEq IV and 40 mEq by mouth. She no longer has any tingling in his feeling improved. Lab work otherwise she will or lower only significant for elevated D-dimer and CTA negative for PE. Vital Signs Vital signs: Vital Signs Temperature 97.2 F L 04/12/25 12:06 Pulse Rate 127 H 04/12/25 12:06 Respiratory Rate 20 04/12/25 12:06 Blood Pressure 167/67 H 04/12/25 12:06 Pulse Oximetry 100 04/12/25 12:06 Oxygen Delivery Room Air 04/12/25 12:06 Temperature 97.2 F L 04/12/25 12:06 Pulse Rate 103 H 04/12/25 16:47 Respiratory Rate 19 04/12/25 16:47 Blood Pressure 147/80 H 04/12/25 16:47 Pulse Oximetry 98 04/12/25 16:47 Oxygen Delivery Room Air 04/12/25 12:06 MDM Differential Diagnosis Differential Diagnosis: Anxiety, electrolyte imbalance, arrhythmia, endocrine disorder Lab Data [facility] Lab Attestation statement: I personally reviewed the patient's lab results. 04/12/25 13:39 04/12/25 13:39 Labs: Lab Results 04/12/25 04/12/25 Range/Units 13:39 16:14 WBC 11.1 H (4.5-10.0) K/mm3 RBC 4.56 (4.2-5.4) M/mm3 Hgb 13.8 (12.0-15.0) g/dL Hct 40.3 (37.0-47.0) % MCV 88.4 (80-100) fl MCH 30.3 (26-34) pg MCHC 34.2 (32-36) g/dl RDW 12.1 (11.5-14.5) % Plt Count 198 (150-375) k/mm3 MPV 10.3 (7.4-10.4) fl Immature Gran % (Auto) 0.4 (0-0.5) % Neut % (Auto) 70.1 (45.5-73.1) % Lymph % (Auto) 21.9 (18.3-44.2) % Kleberg % (Auto) 6.0 (2.6-8.5) % Eos % (Auto) 1.1 (0-4.4) % Baso % (Auto) 0.5 (0.2-1.2) % Lymph # (Auto) 2.44 (0.9-3.2) K/mm3 Kle[place] # (Auto) 0.7 H (0.1-0.6) K/mm3 Eos # (Auto) 0.1 (0-0.3) K/mm3 Baso # (Auto) 0.1 (0.0-0.1) K/mm3 Abs Immat Gran (auto) 0.04 H (0.00-0.031) K/mm3 Absolute Neuts (auto) 7.8 H (1.3-6.7) K/mm3 Absolute Nucleated RBC 0.000 (0.0-0.012) K/mm3 Nucleated RBC % 0.0 (0.0-0.2) % PT 13.7 (11.1-14.7) Seconds INR 1.1 APTT 24.0 (22.3-36.8) Seconds D-Dimer 0.65 H (<0.48) ug/mL Sodium 137 (137-145) mmol/L Potassium 2.7 L* (3.4-5.0) mmol/L Chloride 102 (98-107) mmol/L Carbon Dioxide 20 L (22-30) mmol/L Anion Gap 15 H (4-12) mmol/L BUN 15 (7-17) mg/dL Creatinine 0.95 (0.7-1.0) mg/dL Estim Creat Clear Calc Not Reportable Estimated GFR > 60 (59 - ) Glucose 125 H (65-110) mg/dL Calcium 9.6 (8.4-10.2) mg/dL Total Bilirubin 0.9 (0.2-1.3) mg/dL AST 36 (14-36) U/L ALT 31 (6-35) U/L Alkaline Phosphatase 58 (38-126) U/L Troponin I 0.020 (0.000-0.034) ng/mL NT-Pro-B Natriuret Pep 77 (19.9-100) pg/mL Total Protein 7.6 (6.3-8.2) g/dL Albumin 4.7 (3.5-5.1) g/dL TSH (Reflex) 3.840 (0.465-4.68) uIU/mL Urine Color Yellow (Yellow) Urine Appearance Clear (Clear) Urine pH 7.5 (5.0-9.0) Ur Specific [place] 1.031 (1.001-1.035) Urine Protein Negative (Negative) mg/dL Urine Glucose (UA) Negative (Negative) mg/dL Urine Ketones Negative (Negative) mg/dL Ur Blood (Man) 1+ H (Negative) Urine Nitrate Negative (Negative) Urine Bilirubin Negative (Negative) Urine Urobilinogen 0.2 (<2.0) mg/dL Leukocyte Esterase Rfl Trace H (Negative) EMELYN/UL Urine RBC 6-10 H (0-2) /hpf Urine WBC 0-5 (0-3) /hpf Ur Squamous Epith Cells None seen (Few) /hpf Urine Bacteria None seen /hpf Urine Casts 0-2 Imaging Data Radiologist's impression: ITS Impressions Chest X-Ray 04/12/25 14:10 IMPRESSION: 1. No acute findings of the lungs. Chest CTA 04/12/25 15:02 IMPRESSION: 1. No evidence of pulmonary emboli. Thoracic aorta shows no acute findings. 2. No focal pulmonary changes of acute nature. 3. Postoperative changes of left mastectomy. ECG Data EKG #1: ECG completion date: 04/12/25 ECG completion time: 16:02 tachycardia (110), sinus rhythm, non-specific ST changes, normal QRS and normal QT Discharge Plan Discharge Clinical Impression: Hypokalemia Patient Disposition: Home Condition: Stable Instructions: Hypokalemia (ED) Additional Instructions: Your potassium was found to be low. It was replaced. Takes supplements at home to help over the next few days. Follow-up with your primary care physician to have your labs redrawn. Return the ER if you have new weakness or numbness, you have chest pain with shortness of breath, or you have additional concerns. Patient Language: Andorran Prescriptions: New potassium chloride [K-Tab] 20 mEq tablet extended release 20 meq PO BID Qty: 10 0RF No Action acyclovir 400 mg tablet 400 mg PO TID 5 Days Qty: 15 0RF mupirocin 2 % ointment 1 applic topical BID Qty: 15 0RF anastrozole 1 mg tablet 1 mg PO DAILY atorvastatin 20 mg tablet 20 mg PO DAILY sertraline 25 mg tablet 25 mg PO DAILY tobramycin 0.3 % drops 1 drp EACH EYE Q4H 7 Days Qty: 5 0RF Follow-up/Referrals: Jesica,Salvatore Lundy MD [Primary Care Provider] - 1 Week
[2025-04-13 14:02] LABS: Potassium 2.7 mmol/L (3.4-5.0)
== END 2025-04-12 18:37 | disposition home or self-care (01) ==
PROVIDERS: Emergency Provider Emergency Medicine; PCP Internal Medicine
DX: E87.6 Hypokalemia (principal); E78.00 Pure hypercholesterolemia, unspecified; Z85.3 Personal history of malignant neoplasm of breast
CPT/HCPCS: 36415; 71046; 71275; 80053; 81001; 83880; 84443; 84484; 85025; 85380; 85610; 85730; 93005; 96365; 96366; 96375; 99284; A9270; J2060; J3480; J7030; J7040; Q9967